=== PATIENT | male | born 1965 | race Caucasian/White ===

== ENCOUNTER 2021-09-13 11:31 | Emergency (ER) | payer MEDICARE, SELFPAY ==
[2021-09-13 11:52] VITALS: BP 143/72; PULSE 74; RESP 16; TEMP 36.4; O2SAT 97
--- NOTE | 2021-09-13 12:35 | ED.GENADULT ---
HPI - General Adult General Chief complaint: Skin/Abscess/Foreign Body Stated complaint: Rash Time Seen by Provider: 09/13/21 12:25 Source: patient and RN notes reviewed Mode of arrival: ambulatory Limitations: no limitations History of Present Illness HPI narrative: Patient presents today complaining of 5-day history of rash to his groin folds. These appeared after he had intercourse with his . He has been using Gold[employer] powder and triple antibiotic ointment with very mild improvement. Other than this, he has been trying to keep the rash dry because it is very moist. MD complaint: Rash Related Data Home Medications Medication Instructions Recorded Confirmed alprazolam 1 mg PO DAILY 09/13/21 09/13/21 amlodipine 10 mg PO DAILY 09/13/21 09/13/21 dapagliflozin [Farxiga] 10 mg PO DAILY 09/13/21 09/13/21 ergocalciferol (vitamin D2) 1,250 mcg PO WEEKLY 09/13/21 09/13/21 famotidine 20 mg PO DAILY 09/13/21 09/13/21 insulin degludec [Tresiba 100 unit SUBCUT DAILY 09/13/21 09/13/21 FlexTouch U-100] levothyroxine 50 mcg PO DAILY 09/13/21 09/13/21 lisinopril 20 mg PO DAILY 09/13/21 09/13/21 naloxone [Narcan] 4 mg INTRANASAL PRN PRN 09/13/21 09/13/21 oxycodone 30 mg PO DAILY 09/13/21 09/13/21 sitagliptin [Januvia] 100 mg PO DAILY 09/13/21 09/13/21 tamsulosin 0.4 mg PO DAILY 09/13/21 09/13/21 tizanidine 2 mg PO DAILY 09/13/21 09/13/21 zolpidem 10 mg PO DAILY 09/13/21 09/13/21 Allergies Allergy/AdvReac Type Severity Reaction Status Date / Time No Known Allergies Allergy Verified 09/13/21 12:16 Review of Systems Review of Systems: CONSTITUTIONAL: Denies body aches, fever, chills, or sweats. EYES: Denies visual changes, redness, or discharge. ENT: Denies rhinorrhea, congestion, sore throat, or otalgia. CARDIOVASCULAR: Denies chest pain, palpitations, or edema. RESPIRATORY: Denies cough or dyspnea. GASTROINTESTINAL: Denies abdominal pain, nausea, vomiting, or diarrhea. GENITOURINARY: Denies dysuria or hematuria. SKIN: Denies itching, or wounds.+ Rash MUSCULOSKELETAL: Denies back pain, joint pain, or myalgia. NEUROLOGIC: Denies headache, numbness, tingling, or weakness. PSYCH: Denies depression or anxiety. [facility] Past Medical History Medical History (Updated 09/13/21 @ 12:41 by Leonor Vega, [employer], ) Diabetes Hypertension Hypothyroidism Comments At time of signature, I have reviewed and agree with nursing past medical, surgical, social and family history unless otherwise noted. Please see nursing chart for further information. There is no relevant family history pertinent to the presenting complaint Exam Narrative: GENERAL: Well-appearing, well-nourished, and in no acute distress. HEAD: Normocephalic, atraumatic. EYES: EOMI. No redness or drainage. Conjunctivae normal. ENT: Mucous membranes pink and moist. NECK: Normal AROM. CHEST: No respiratory distress. EXTREMITIES: Normal range of motion. No edema. SKIN: Warm. Capillary refill normal. Normal skin turgor. Groin folds have large area of erythematous, moist and macerated papular rash. NEURO: No focal deficits. Alert and oriented x3. Gait steady. PSYCH: Normal affect. No signs of depression or anxiety. Course Course Level of Care: Express Care Visit Vital Signs Vital signs: Vital Signs Temperature 97.5 F L 09/13/21 11:52 Pulse Rate 74 09/13/21 11:52 Respiratory Rate 16 09/13/21 11:52 Blood Pressure 143/72 H 09/13/21 11:52 Pulse Oximetry 97 09/13/21 11:52 Temperature 97.5 F L 09/13/21 11:52 Pulse Rate 74 09/13/21 11:52 Respiratory Rate 16 09/13/21 11:52 Blood Pressure 143/72 H 09/13/21 11:52 Pulse Oximetry 97 09/13/21 11:52 Reviewed. Pt has been instructed to follow up with his PCP regarding his elevated blood pressure today. Medical Decision Making Differential Diagnosis Differential Diagnosis: Eczema, herpes, Tracee, tinea, intertrigo Vital Signs Vital Signs: Vital Signs Temperature 97.5 F L 0
== END 2021-09-13 12:50 | disposition home or self-care (01) ==
PROVIDERS: Emergency Provider Nurse Practitioner
DX: L30.4 Erythema intertrigo (principal); E11.9 Type 2 diabetes mellitus without complications; I10 Essential (primary) hypertension; E03.9 Hypothyroidism, unspecified
CPT/HCPCS: 99211; G0463